=== PATIENT | female | born 1970 | race Caucasian/White ===

== ENCOUNTER 2021-10-29 12:16 | Emergency (ER) | payer BC, OTHER ==
[~2021-10-29] VITALS: Ht 154 cm; Wt 58.8 kg
--- NOTE | 2021-10-29 12:35 | ED Back Pain ---
General Chief Complaint: Back Problems Stated Complaint: RT FLANK PAIN Source of Information: Patient Exam Limitations: No Limitations History of Present Illness Date Seen by Provider: Oct 29, 2021 Time Seen by Provider: 12:18 Initial Comments 51yoF with PMH of fibromyalgia and frequents UTIs coming in due to R flank pain. Started on Friday, progressively getting worse now with severe pain. Temp elevated at 101. Did take ibuprofen this morning. Having abd discomfort with it. Denies dysuria, urinary frequency, hematuria. Did go on a rough ride [place] [employer] and pain started around that time. Otherwise denies any other acute complaints. Allergies and Home Medications Allergies Coded Allergies: Penicillins (Verified Allergy, Unknown, 10/29/21) Sulfa (Sulfonamide Antibiotics) (Verified Allergy, Unknown, 10/29/21) Patient Home Medication List Home Medication List Reviewed: Yes Ciprofloxacin HCl (Ciprofloxacin HCl) 500 Mg Tablet, 500 MG PO BID Prescribed by: MAGY KIM on 10/29/21 1332 Review of Systems Constitutional: fever EENTM: No blurred vision Respiratory: No cough Cardiovascular: No chest pain Gastrointestinal: abdominal pain Genitourinary: other (right flank pain) Musculoskeletal: no symptoms reported Skin: no symptoms reported Psychiatric/Neurological: No Symptoms Reported All Other Systems Reviewed Negative Unless Noted: Yes Past Vwiendd-Zslfgm-Ueskaf Hx Patient Social History Tobacco Use?: No Past Medical History Surgeries: Yes Appendectomy Physical Exam Vital Signs Vital Signs - First Documented 10/29/21 12:33 Temp 37.0 Pulse 98 Resp 18 B/P (MAP) 138/63 (88) Pulse Ox 99 O2 Delivery Room Air Capillary Refill : Height, Weight, BMI Height: '" Weight: lbs. oz. kg; BMI Method: General Appearance: No Apparent Distress, WD/WN HEENT: PERRL/EOMI, Normal ENT Inspection, Pharynx Normal Neck: Full Range of Motion, Normal Inspection, Non Tender, Supple Cardiovascular: Regular Rate, Rhythm, No Edema, Normal Peripheral Pulses Respiratory: Chest Non Tender, Lungs Clear, Normal Breath Sounds, No Accessory Muscle Use, No Respiratory Distress Gastrointestinal: Normal Bowel Sounds, Non Tender, Soft; No Distended, No Guarding Back: Normal Inspection, CVA Tenderness (R) Extremity: Normal Capillary Refill, Normal Inspection, Normal Range of Motion, Non Tender, No Calf Tenderness, No Pedal Edema Neurologic/Psychiatric: Alert, No Motor/Sensory Deficits, Normal Mood/Affect Skin: Normal Color, Warm/Dry Lymphatic: No Adenopathy Progress/Results/Core Measures Results/Orders Lab Results Laboratory Tests Test 10/29/21 12:21 10/29/21 12:36 Range/Units Urine Color YELLOW Urine Clarity SL CLOUDY Urine pH 7.0 5-9 Urine Specific [place] 1.010 L 1.016-1.022 Urine Protein NEGATIVE NEGATIVE Urine Glucose (UA) NEGATIVE NEGATIVE Urine Ketones NEGATIVE NEGATIVE Urine Nitrite NEGATIVE NEGATIVE Urine Bilirubin NEGATIVE NEGATIVE Urine Urobilinogen 0.2 < = 1.0 MG/DL Urine Leukocyte Esterase 1+ H NEGATIVE Urine RBC (Auto) 2+ H NEGATIVE Urine RBC 2-5 H /HPF Urine WBC 25-50 H /HPF Urine Squamous Epithelial Cells 2-5 /HPF Urine Crystals NONE /LPF Urine Bacteria LARGE H /HPF Urine Casts NONE /LPF Urine Mucus NEGATIVE /LPF Urine Culture Indicated YES Influenza Type A (RT-PCR) Not Detected Not Detecte Influenza Type B (RT-PCR) Not Detected Not Detecte SARS-CoV-2 RNA (RT-PCR) Not Detected Not Detecte My Orders Orders - MAGY KIM MD Ua Culture If Indicated (10/29/21 12:22) Ct Abdomen/Pelvis Wo (10/29/21 12:38) Covid 19 Inhouse Test (10/29/21 12:38) Influenza A And B By Pcr (10/29/21 12:38) Acetaminophen Tablet (Tylenol Tablet) (10/29/21 12:45) Urine Culture (10/29/21 12:21) Ciprofloxacin Tablet (Cipro Tablet) (10/29/21 13:25) Medications Given in ED Current Medications Medications Dose Ordered Sig/Mickey Route Start Time Stop Time Status Last Admin Dose Admin Acetaminophen 1,000 mg ONCE ONCE PO 10/29/21 12:45 10/29/21 12:46 DC 10/29/21 12:51 1,000 MG Vital Signs/I&O 10/29/21 12:33 Temp 37.0 Pulse 98 Resp 18 B/P (MAP) 138/63 (88) Pulse Ox 99 O2 Delivery Room Air Progress Progress Note : Progress Note 51-year-old female with above history coming in due to elevated temperature and right flank pain. ABCs were intact and vitals were stable on presentation. Physical exam with right flank tenderness, but abdominal exam is reassuring. Flu and COVID testing sent and were negative. Urinalysis concerning for infection, and clinically likely pyelonephritis. CT abdomen pelvis without contrast also with either recently passed kidney stone with pyelonephritis versus diverticulitis as well. Given allergies, she will be placed on ciprofloxacin. I believe she is stable for discharge with outpatient follow-up. She was sent home with strict return precautions Diagnostic Imaging Diagonstic Imaging: CT (abd/pelvis) Comments [facility] [place], [place] NAME: BLANCA ALFREDO [facility] REC#: [id number] PT STATUS: REG ER : 1970 PHYSICIAN: MAGY KIM MD ADMIT DATE: 10/29/21/ER FS Signed Date of Exam:10/29/21 CT ABDOMEN/PELVIS WO PROCEDURE: CT abdomen and pelvis without contrast. TECHNIQUE: Multiple contiguous axial images were obtained through the abdomen and pelvis without the use of intravenous contrast. Auto Exposure Controls were utilized during the CT exam to meet ALARA standards for radiation dose reduction. INDICATION: right flank pain radiating to the groin. EXAMINATION: CT abdomen and pelvis without contrast 10/29/2021. FINDINGS: There is dependent atelectasis at the lung bases. There is a small hiatal hernia. The nonopacified abdominal viscera demonstrate no gross acute abnormality within the liver. Hepatomegaly is noted with small hypodensities in the right lobe too small for characterization. The spleen unremarkable. Pancreas unremarkable. Tiny stones noted within the gallbladder. No surrounding inflammatory changes appreciated. Hyperinflation noted in both adrenal glands which are otherwise unremarkable. There is marked inflammatory changes with fat stranding about the right kidney suggesting either a recently passed stone or pyelonephritis. There is mild right hydroureteronephrosis. The right ureter however is difficult to visualize within the mid abdomen. No definite ureteral stones appreciated with calcifications scattered about the abdomen likely phleboliths. Phleboliths and atherosclerotic disease. The diffuse inflammatory change surrounds portions of the ascending colon likely reactive. Mild focal colitis not excluded. There is focal diverticular disease about the hepatic flexure with surrounding inflammatory change also noted. The appendix is not visualized. Given the inflammation about the ascending colon, acute appendicitis should be clinically excluded. No abscess formation is appreciated. There is no free air. Minimal free fluid is noted in the pelvis. The left kidney appears unremarkable. There is no acute osseous abnormality. IMPRESSION: 1. Diffuse fat stranding throughout the right aspect of the abdomen probably surrounding the right kidney and adjacent colon. Given mild right hydroureteronephrosis findings likely due to a recently passed stone versus pyelonephritis. 2. Diffuse inflammatory change about the ascending colon and hepatic flexure with diverticular disease in the region diverticulitis/or and/or colitis not excluded. Correlate with symptoms. Of note the appendix is not visualized. 3. Minimal free fluid in the pelvis likely reactive. 4. Cholelithiasis. Other findings as above. Dictated by: Dictated on workstation # [id number] Dict: 10/29/21 1253 Trans: 10/29/21 1328 CV [id number] Interpreted by: KIRA FLANNERY MD Electronically signed by: KIRA FLANNERY MD 10/29/21 1328 Departure Impression Primary Impression: Pyelonephritis Disposition: 01 HOME, SELF-CARE Condition: Stable Departure-Patient Inst. Decision time for Depature: 13:31 Referrals: DEMAR BOLAÑOS APRN (PCP) Primary Care Physician [facility]/MARGARET (Family) Primary Care Physician Patient Instructions: Kidney Infection (DC) Add. Discharge Instructions: You do currently have a kidney infection. You will be on antibiotics for the next 10 days. Follow-up with your regular doctor if things are not improving. I suspect symptoms to get better after roughly 48 hours of the antibiotics. Take ibuprofen and/or Tylenol as needed for body aches or pain. Scripts Cefdinir (Cefdinir) 300 Mg Capsule 300 MG PO BID for 10 Days, #20 CAP 0 Refills Prov: MAGY KIM MD 10/29/21 Work/School Note: Work Release Form Date Seen in the Emergency Department: Oct 29, 2021 Return to Work: Oct 31, 2021 Restrictions: Return-No Fever (24hrs) MAGY KIM MD Oct 29, 2021 12:35
[2021-10-29 12:41] LABS: BILIRUBIN,URINE NEGATIVE (NEGATIVE); CLARITY,URINE SL CLOUDY; COLOR,URINE YELLOW; GLUCOSE, URINE (UA) NEGATIVE (NEGATIVE); KETONES,URINE NEGATIVE (NEGATIVE); LEUKOCYTE ESTERASE ,URINE 1+ (NEGATIVE); NITRITE,URINE NEGATIVE (NEGATIVE); PROTEIN,URINE NEGATIVE (NEGATIVE)
[2021-10-29] MEDS ORDERED: ACETAMINOPHEN 500 MG TAB (TYLENOL) PO ONE (12:45)
[2021-10-29 12:48] LABS: BACTERIA,URINE LARGE /HPF; WBC,URINE 25-50 /HPF
--- NOTE | 2021-10-29 13:06 | Diagnostic Imaging Report ---
PROCEDURE: CT abdomen and pelvis without contrast. TECHNIQUE: Multiple contiguous axial images were obtained through the abdomen and pelvis without the use of intravenous contrast. Auto Exposure Controls were utilized during the CT exam to meet ALARA standards for radiation dose reduction. INDICATION: right flank pain radiating to the groin. EXAMINATION: CT abdomen and pelvis without contrast 10/29/2021. FINDINGS: There is dependent atelectasis at the lung bases. There is a small hiatal hernia. The nonopacified abdominal viscera demonstrate no gross acute abnormality within the liver. Hepatomegaly is noted with small hypodensities in the right lobe too small for characterization. The spleen unremarkable. Pancreas unremarkable. Tiny stones noted within the gallbladder. No surrounding inflammatory changes appreciated. Hyperinflation noted in both adrenal glands which are otherwise unremarkable. There is marked inflammatory changes with fat stranding about the right kidney suggesting either a recently passed stone or pyelonephritis. There is mild right hydroureteronephrosis. The right ureter however is difficult to visualize within the mid abdomen. No definite ureteral stones appreciated with calcifications scattered about the abdomen likely phleboliths. Phleboliths and atherosclerotic disease. The diffuse inflammatory change surrounds portions of the ascending colon likely reactive. Mild focal colitis not excluded. There is focal diverticular disease about the hepatic flexure with surrounding inflammatory change also noted. The appendix is not visualized. Given the inflammation about the ascending colon, acute appendicitis should be clinically excluded. No abscess formation is appreciated. There is no free air. Minimal free fluid is noted in the pelvis. The left kidney appears unremarkable. There is no acute osseous abnormality. IMPRESSION: 1. Diffuse fat stranding throughout the right aspect of the abdomen probably surrounding the right kidney and adjacent colon. Given mild right hydroureteronephrosis findings likely due to a recently passed stone versus pyelonephritis. 2. Diffuse inflammatory change about the ascending colon and hepatic flexure with diverticular disease in the region diverticulitis/or and/or colitis not excluded. Correlate with symptoms. Of note the appendix is not visualized. 3. Minimal free fluid in the pelvis likely reactive. 4. Cholelithiasis. Other findings as above. Dictated by: Dictated on workstation # [id number]
[2021-10-29] MEDS ORDERED: CIPROFLOXACIN 500 MG (CIPRO) TABLET PO STA (13:25)
[2021-10-29] MEDS ORDERED: CIPR500T5 PO (13:32)
[2021-10-29 13:33] VITALS: BP 138/63
[2021-10-29] MEDS ORDERED: CEFD300C3 PO (13:36)
[2021-10-29] MEDS ORDERED: CEFDINIR 300 MG (OMNICEF) CAP PO ONE (13:45)
== END 2021-10-29 13:45 | disposition home or self-care (01) ==
LOC: ER FS 12:19
DX: N12 Tubulo-interstitial nephritis, not specified as acute or chronic (principal); Z87.39 Personal history of other diseases of the musculoskeletal system and connective tissue; Z88.0 Allergy status to penicillin; Z88.2 Allergy status to sulfonamides; Z20.822 Contact with and (suspected) exposure to COVID-19; Z28.310 Unvaccinated for COVID-19
CPT/HCPCS: 74176; 81000; 87077; 87088; 87186; 87636